=== PATIENT | female | born 1965 | race Caucasian/White ===

== ENCOUNTER → 2016-09-07 | Day surgery (SDC) | payer OTHER ==
[~2016-09-07] MED LIST: BACLOFEN10 MG PO; CELEXA20 MG PO; IBUPROFEN800 MG PO; LASIX20 MG PO; LORTAB 10-3251 EACH PO; LOVENOX30 MG/0.3 SQ; NEURONTIN800 MG PO; POTASSIUM CHLO10 MEQ PO; TYLENOL EXTRA500 MG PO; XANAX0.5 MG PO
== END | disposition home or self-care (01) ==
LOC: SDC 07:19
DX: M23.222 Derangement of posterior horn of medial meniscus due to old tear or injury, left knee (principal); M22.42 Chondromalacia patellae, left knee; I10 Essential (primary) hypertension; M19.90 Unspecified osteoarthritis, unspecified site; F32.9 Major depressive disorder, single episode, unspecified; Z87.442 Personal history of urinary calculi; Z88.8 Allergy status to other drugs, medicaments and biological substances; Z79.1 Long term (current) use of non-steroidal anti-inflammatories (NSAID); Z79.891 Long term (current) use of opiate analgesic; Z79.899 Other long term (current) drug therapy; Z96.651 Presence of right artificial knee joint
CPT/HCPCS: J0171; J2704; J2765